=== PATIENT | female | born 1985 | race Two or more races ===

== ENCOUNTER 2017-06-30 04:11 | Emergency (ER) | payer OTHER ==
[~2017-06-30] VITALS: Ht 162.6 cm; Wt 63.5 kg
[2017-06-30 07:18] LABS: Urine Bilirubin Negative (Negative); Urine Blood Negative /uL (Negative); Urine Color Yellow (Yellow); Urine Glucose Normal (Normal); Urine Ketone TRACE (Negative); Urine Mucus FEW (None Seen); Urine Nitrite Negative (Negative); Urine RBC 2 /hpf (0 - 4); Urine Squamous Epithelial Cell MOD /hpf (<5); Urine Urobilinogen Normal (Negative); Urine pH 5.5 (5.0-8.0)
[2017-06-30] MEDS ORDERED: NITROFURANTOIN (MONO) 100 mg CAP PO ONE (07:30)
[2017-06-30] MEDS ORDERED: LORazepam 0.5 MG TAB PO ONE (07:30)
[2017-06-30 08:00] VITALS: BP 114/75
== END 2017-06-30 09:03 | disposition home or self-care (01) ==
LOC: EDBD 04:11 → ER 04:18
DX: F41.9 Anxiety disorder, unspecified (principal); N39.0 Urinary tract infection, site not specified
CPT/HCPCS: 70450; 80307; 81001; 81025; 93005

== ENCOUNTER 2018-04-27 22:07 | Emergency (ER) | payer OTHER ==
[~2018-04-27] VITALS: Ht 149.9 cm; Wt 53.5 kg
[2018-04-27 22:50] VITALS: BP 127/91
[2018-04-27 23:44] LABS: Urine Bacteria FEW /hpf (None Seen); Urine Blood 3+ /uL (Negative); Urine Mucus MANY (None Seen); Urine Specific Gravity 1.033 (1.001-1.035); Urine WBC 9 /hpf (0 - 5)
[2018-04-27 23:46] LABS: Basophils # (auto) 0 uL; Basophils % (auto) 0.4 % (0.0-2.0); Eosinophils # (auto) 0.2 uL; Eosinophils % (auto) 2.6 % (0.0-7.0); Hematocrit 40.7 % (36.0-46.0); Hemoglobin 13.7 g/dL (12.2-16.2); Lymphocytes # (auto) 2.8 uL; Mean Corpuscular Hemoglobin 30.8 pg (28.0-32.0); Mean Corpuscular Hgb Conc. 33.7 g/dL (32.0-36.0); Mean Corpuscular Volume 91.2 fL (80.0-100.0); Monocytes # (auto) 0.6 uL; Monocytes % (auto) 7.3 % (0.0-12.0); Neutrophils % (auto) 57.7 % (37.0-80.0); Platelet Count (auto) 275 10^3/uL (140-450); Red Blood Cells 4.47 10^6/uL (4.0-5.20); Red Cell Distribution Width 13.4 % (11.8-14.3); White Blood Cell 8.6 10^3/uL (4.4-10.8)
[2018-04-28 00:01] LABS: Alanine Aminotransferase 38 U/L (13-56); Albumin 3.7 g/dL (3.4-5.0); Anion Gap 9 (5-15); Aspartate Aminotransferase 23 U/L (15-37); BUN/Creatinine Ratio 19.1; Blood Urea Nitrogen 13 mg/dL (7-18); Carbon Dioxide 24 mmol/L (21-32); Chloride 109 mmol/L (98-107); GFR African American 127 mL/min; GFR Non-African American 105 mL/min; Glucose 106 mg/dL (74-106); Magnesium 2.2 mg/dL (1.6-2.6); Potassium 3.3 mmol/L (3.5-5.1); Sodium 142 mmol/L (136-145)
[2018-04-28 00:06] LABS: Alkaline Phosphatase 125 U/L (45-117); Bilirubin, Total 0.4 mg/dL (0.2-1.0); Total Protein 8.2 g/dL (6.4-8.2)
[2018-04-28] MEDS ORDERED: ALUM & MAG HYDROX-SIMETH LIQ(MAALOX) 30 ML PO ONE ×2 (04:45→05:00)
[2018-04-28] MEDS ORDERED: DONNATAL 5ml ORAL Elix (BELLADONNA ALK-PHENOBARB) PO ONE (05:00)
[2018-04-28] MEDS ORDERED: LIDOCAINE VISCOUS 2% 15ML UD PO ONE (05:00)
== END 2018-04-28 05:50 | disposition home or self-care (01) ==
LOC: ER 22:07
DX: R07.9 Chest pain, unspecified (principal); K21.9 Gastro-esophageal reflux disease without esophagitis; N39.0 Urinary tract infection, site not specified; R06.02 Shortness of breath
CPT/HCPCS: 36415; 80053; 81001; 81025; 83735; 83880; 84484; 85025; 93005